=== PATIENT | female | born 2005 | race Caucasian/White ===

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

== ENCOUNTER 2024-03-15 14:27 | Emergency (ER) | payer OTHER ==
[~2024-03-15] VITALS: Ht 157.5 cm; Wt 109.5 kg
[~2024-03-15 14:27] MED LIST changes: +FLUO-290 PO; +FLUO-365 PO; -FLUO10CA18 PO; -FLUO20CA22 PO
[2024-03-15 16:14] LABS: HEMATOCRIT 41.7 % (36.0-47.0); MEAN CORPUSCULAR HEMOGLOBIN 28.4 pg (27.0-33.0); MEAN CORPUSCULAR HGB CONC 33.6 g/dl (32.0-36.5); MEAN CORPUSCULAR VOLUME 84.6 fl (80.0-96.0); PLATELET COUNT, AUTOMATED 420 10^3/uL (150-450); RED BLOOD COUNT 4.93 10^6/uL (4.00-5.40); WHITE BLOOD COUNT 17.1 10^3/uL (4.0-10.0)
[2024-03-15 16:32] LABS: ATYPICAL LYMPH 4 % (0-5); LYMPHOCYTES 22 % (16-44); MONOCYTES 8 % (0-5); NEUTROPHILS 66 % (28-66); PLATELET ESTIMATE NORMAL (NORMAL)
[2024-03-15 16:34] LABS: LIPASE 27 U/L (12-53)
[2024-03-15 16:36] LABS: ALBUMIN 3.9 G/DL (3.2-5.2); ALKALINE PHOSPHATASE 130 U/L (46-116); ALT/SGPT 19 U/L (7.0-40); AST/SGOT < 8 U/L (<34); BILIRUBIN,DIRECT 0.4 MG/DL (<0.4); BILIRUBIN,TOTAL 1.5 MG/DL (0.3-1.2); TOTAL PROTEIN 7.5 G/DL (5.7-8.2)
[2024-03-15] MEDS ORDERED: ISOVUE-370 76% 100ML VIAL As Ordered ONE (16:48)
[2024-03-15] MEDS: NS 1,000 ML IV ONE (17:08)
[2024-03-15] MEDS: metroNIDAZOLE (FLAGYL) 500MG TABLET PO ONE (18:32)
[2024-03-15] MEDS: CIPROFLOXACIN 500MG TABLET PO ONE (18:32)
[2024-03-15] MEDS ORDERED: METR-265 PO (19:07)
[2024-03-15] MEDS ORDERED: CIPR-249 PO (19:07)
[2024-03-15 19:37] VITALS: BP 135/75; TEMP 97.9; O2SAT 100
== END 2024-03-15 19:40 | disposition home or self-care (01) ==
LOC: M ED 14:27
DX: K57.32 Diverticulitis of large intestine without perforation or abscess without bleeding (principal); Z79.2 Long term (current) use of antibiotics; Z79.899 Other long term (current) drug therapy
CPT/HCPCS: 74177; 80047; 80076; 81001; 83605; 83690; 84702; 85025; 87086; 96360; 99284; Q9967